=== PATIENT | male | born 1955 | race Caucasian/White ===

== ENCOUNTER → 2019-10-08 06:30 | Outpatient (CLI) | payer BC, SELFPAY ==
--- NOTE | 2019-10-08 06:35 | RAD_ITS ---
STUDY: X-RAY CHEST REASON FOR EXAM: Male, 64 years old. Emphysema TECHNIQUE: PA and lateral views of the chest. COMPARISON: None. FINDINGS: Lungs are hyperinflated with coarsened interstitial lung markings but no airspace consolidation. There is no demonstrated pleural abnormality. Normal size heart. Normal mediastinum and cortney. Normal visualized pulmonary arteries. Normal visualized aortic arch and descending thoracic aorta. There is demineralization of the osseous structures. Normal visualized ribs, clavicles, and shoulders. There is no demonstrated abnormality of the visualized soft tissue structures of the upper abdomen. RAD/Chest PA and Lateral IMPRESSION: 1. No airspace consolidation or pleural effusion. 2. Hyperinflation with coarsened interstitial lung markings compatible with history provided of emphysema. Electronically Signed: Meng Bangura MD ([place]) at 15:28 EST , Service support ,
--- NOTE | 2019-10-09 09:29 | PFT ---
INTRODUCTION: The patient is a 64-year-old male that presents for pulmonary function studies secondary to a diagnosis of dyspnea on exertion. Respiratory therapy reports good patient effort. Bronchodilators were used during testing. INTERPRETATION: Forced expiration spirometry demonstrates the presence of a moderate large airways obstructive ventilatory defect. There was no significant response to aerosolized bronchodilators. Spirograms are of good quality and do not plateau indicating slow emptying of the lungs. Body plethysmography was performed and reveals a decreased TLC to 6.22 L, 82% of predicted, indicative of a mild restrictive ventilatory impairment. The remainder of the lung volumes are symmetrically reduced. Diffusing capacity by single breath CO is reduced at 67% of predicted. IMPRESSION: Irreversible moderate mixed ventilatory defect with mild reduction in diffusing capacity.
== END ==
DX: Z00.00 Encounter for general adult medical examination without abnormal findings (principal); R06.02 Shortness of breath; E78.00 Pure hypercholesterolemia, unspecified; E55.9 Vitamin D deficiency, unspecified
CPT/HCPCS: 71046; 94060; 94726; 94729